=== PATIENT | male | born 1995 | race African-American/Black ===

== ENCOUNTER 2018-10-01 13:26 | Emergency (ER) | payer OTHER, SELFPAY ==
[~2018-10-01 13:26] MED LIST: ISOVUE-370 76%-LOCM 1 ML ONE
[2018-10-01] MEDS ORDERED: Morphine 4 MG/ML VIAL ONE ×2 (13:35→14:41)
--- NOTE | 2018-10-01 13:46 | RAD ---
EXAM: Single view of the chest HISTORY: Chest pain and shortness of breath COMPARISON: None FINDINGS: Single view of the chest shows a normal sized cardiomediastinal silhouette. There is no nette dence of consolidation, mass, or pleural effusion. The bones are unremarkable. IMPRESSION: No evidence of acute cardiopulmonary disease
[2018-10-01 13:54] LABS: #Basophils 0.1 thou/uL (0.0-0.2); #Eosinphils 0.1 thou/uL (0.0-0.7); #Lymphocytes 1.4 thou/uL (1.20-3.40); #Monocytes 0.5 thou/uL (0.11-0.59); #Neutrophils 7.8 thou/uL (1.40-6.50); %Basophils 0.9 % (0.0-1.0); %Eosinophils 0.9 % (0.0-10.0); %Monocytes 4.7 % (0.0-10.0); %Neutrophils 79.6 % (42.0-75.0); Hemoglobin 13.2 g/dL (14.0-18.0); Mean Corpuscular HGB CONC 33.7 g/dL (32.0-36.0); Mean Corpuscular Hemoglobin 32.6 pg (27.0-31.0); Mean Corpuscular Volume 96.7 fL (78.0-98.0); Mean Platelet Volume 8.6 fL (7.4-10.4); Platelet Count 222 thou/uL (130-400); RBC Distribution Width 11.1 % (11.5-14.5); Red Blood Cell (RBC) Count 4.05 mill/uL (4.70-6.10); White Blood Cell (WBC) Count 9.8 thou/uL (4.8-10.8)
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
[2018-10-01 14:13] LABS: ALT (SGPT) 10 U/L (8-55); AST (SGOT) 19 U/L (5-34); Albumin 4.1 g/dL (3.5-5.0); Alkaline Phosphatase 69 U/L (40-150); Anion Gap 10 mmol/L (10-20); BUN (Urea Nitrogen) 13 mg/dL (8.9-20.6); Bilirubin, Total 0.5 mg/dL (0.2-1.2); Calc. Creatinine Clearance 0 mL/min (70-130); Calcium 9.1 mg/dL (7.8-10.44); Carbon Dioxide 23 mmol/L (22-29); Chloride 109 mmol/L (98-107); Estimated GFR-MDRD Greater than 90; Globulin 2.9 g/dL (2.4-3.5); Glucose 119 mg/dL (70-105); Potassium 3.7 mmol/L (3.5-5.1); Sodium 138 mmol/L (136-145)
[2018-10-01] MEDS ORDERED: Adacel (T-DAP) 0.5 ML SYRINGE ONE (14:35)
[2018-10-01] MEDS ORDERED: CEFAZOLIN 1 GM VIAL ONE (14:35)
[2018-10-01] MEDS ORDERED: Ketorolac Tromethamine 30 MG/ML VIAL ONE (16:13)
[2018-10-01] MEDS ORDERED: Bacitracin Zinc 1 Packet ONE (16:18)
== END 2018-10-01 16:25 | disposition home or self-care (01) ==
LOC: ERS 13:26
DX: S21.102A Unspecified open wound of left front wall of thorax without penetration into thoracic cavity, initial encounter (principal); W20.8XXA Other cause of strike by thrown, projected or falling object, initial encounter
CPT/HCPCS: 36415; 71045; 71260; 80053; 85025; 90471; 90715; 93005; 96361; 96365; 96374; 96376; G0390; J0690; J1885; J2270; Q9966

== ENCOUNTER 2018-10-02 16:55 | Inpatient (IN) | payer OTHER, SELFPAY ==
--- NOTE | 2018-10-02 18:04 | CT ---
CT CHEST without CONTRAST CLINICAL INDICATION: Normal check. Patient is post injury one day ago with water pressure done. Difficulty breathing today . COMPARISON: Contrasted CT thorax on 10/01/2018. FINDINGS: Aorta: Normal caliber but not well evaluated without IV contrast on this exam. Lungs: There is a tiny right and small left pleural effusions. Trace pleural effusion was seen on the prior exam which has increased on today's study. No pneumothorax is seen. There is no consolidation identified. Minimal passive atelectasis is seen at each lung base. Mediastinum: Limited evaluation without IV contrast. Thyroid gland: Normal nonenhanced CT appearance. Osseous structures: No fracture is seen. Chest wall: Again noted is the subcutaneous emphysema involving the left anterior chest wall and left pectoralis major muscle. Subcutaneous emphysema is similar to prior exam. There is a greater degree of subcutaneous edema now present anterior to the pectoralis muscle as well as anterior to the sternum suggestion of minimal fluid posterior to the left pectoralis major muscle. Upper abdomen: There is increased density present in the gallbladder lumen likely due to vicarious ex cretion of contrast from prior study. Visualized upper abdomen otherwise demonstrates a grossly normal nonenhanced CT appearance. No other interval change. IMPRESSION: 1. Stable traumatic injury of the left anterior chest wall with subcutaneous emphysema involving the left pectoralis major muscle and subcutaneous soft tissues with associated small soft tissue defect seen anterior to the left pectoralis muscle. There has been mild interval increase in subcutaneous ed irina on the current study. 2. Tiny right and small left pleural effusions which have increased from prior study. No pneumothorax is identified.
[2018-10-02 18:08] LABS: #Lymphocytes 1.3 thou/uL (1.20-3.40); #Neutrophils 11.5 thou/uL (1.40-6.50); %Basophils 0.3 % (0.0-1.0); %Eosinophils 0.1 % (0.0-10.0); %Lymphocytes 9.4 % (21.0-51.0); %Monocytes 7.5 % (0.0-10.0); %Neutrophils 82.7 % (42.0-75.0); Hemoglobin 14.5 g/dL (14.0-18.0); Mean Corpuscular HGB CONC 33.9 g/dL (32.0-36.0); Mean Corpuscular Hemoglobin 32.9 pg (27.0-31.0); Mean Corpuscular Volume 96.9 fL (78.0-98.0); Mean Platelet Volume 9.1 fL (7.4-10.4); Platelet Count 209 thou/uL (130-400); RBC Distribution Width 11.1 % (11.5-14.5); Red Blood Cell (RBC) Count 4.41 mill/uL (4.70-6.10); White Blood Cell (WBC) Count 13.9 thou/uL (4.8-10.8)
[2018-10-02] MEDS ORDERED: Ibuprofen 800 MG TAB ONE (18:11)
[2018-10-02] MEDS ORDERED: Dextrose 5% in Water 1,000 ML IV PRN ×2 (19:37→19:43)
[2018-10-02] MEDS ORDERED: hydrALAZINE 20 MG/ML VIAL SLOW IVP PRN (19:37)
[2018-10-02] MEDS ORDERED: Dextrose 50% Abboject 50 ML SYRINGE SLOW IVP PRN ×2 (19:37→19:43)
[2018-10-02] MEDS ORDERED: Ondansetron PF 4 MG/2 ML Vial IVP PRN (19:37)
[2018-10-02] MEDS ORDERED: Promethazine HCl 25 MG/ML VIAL IM PRN ×2 (19:37→23:17)
[2018-10-02] MEDS ORDERED: Morphine 4 MG/ML VIAL SLOW IVP PRN (19:37)
[2018-10-02] MEDS ORDERED: HYDROcodone/Acetaminophen 5/325 mg Tablet PO PRN (19:41)
[2018-10-02] MEDS ORDERED: Cyclobenzaprine 10 MG TAB PO PRN (19:41)
[2018-10-02 19:58] LABS: Phosphorus 2.4 mg/dL (2.3-4.7)
[2018-10-02 20:00] LABS: Anion Gap 13 mmol/L (10-20); BUN (Urea Nitrogen) 10 mg/dL (8.9-20.6); Calc. Creatinine Clearance 0 mL/min (70-130); Calcium 9.4 mg/dL (7.8-10.44); Carbon Dioxide 23 mmol/L (22-29); Chloride 103 mmol/L (98-107); Estimated GFR-MDRD Greater than 90; Glucose 99 mg/dL (70-105); Magnesium 1.4 mg/dL (1.6-2.6); Potassium 3.2 mmol/L (3.5-5.1); Sodium 136 mmol/L (136-145)
[2018-10-02 20:03] LABS: Lactic Acid 0.9 mmol/L (0.5-2.2)
[2018-10-02 20:16] LABS: Hemoglobin 13.2 g/dL (14.0-18.0); Mean Corpuscular HGB CONC 33.3 g/dL (32.0-36.0); Mean Corpuscular Volume 96.2 fL (78.0-98.0); Mean Platelet Volume 8.7 fL (7.4-10.4); Platelet Count 221 thou/uL (130-400); RBC Distribution Width 10.9 % (11.5-14.5); Red Blood Cell (RBC) Count 4.11 mill/uL (4.70-6.10); White Blood Cell (WBC) Count 13.3 thou/uL (4.8-10.8)
[2018-10-02 20:27] LABS: Band 3 % (5-11); Lymphocytes 9 % (21-51); MDiff Complete? YES; Monocytes 4 % (0-10); Neutrophil 83 % (42-75); Platelet Morphology Comment Appears Adequate; RBC Morphology Normal; Reactive Lymphocytes 1 % (0-10)
[2018-10-02] MEDS ORDERED: Albuterol Sulfate 1.25 MG/3 ML NEB NEB PRN (20:59)
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
[2018-10-02] MEDS ORDERED: Bupivacaine HCl 0.5%/Epinephrine 1:200,000/PF 30 ml Vial ONE (21:51)
[2018-10-02] MEDS ORDERED: Midazolam HCl 2 mg/2 ml Vial ONE (21:52)
[2018-10-02] MEDS ORDERED: Fentanyl 250 MCG/5 ML VIAL ONE (21:52)
[2018-10-02] MEDS ORDERED: Famotidine/PF 20 mg/2ml Vial ONE (21:53)
[2018-10-02] MEDS ORDERED: Scopolamine 1.5 mg/72 hour Patch ONE (21:53)
[2018-10-02] MEDS ORDERED: Promethazine HCl 25 MG/ML VIAL SLOW IVP PRN (23:17)
[2018-10-02] MEDS ORDERED: Ondansetron HCl/PF 4 MG/2 ML Vial IVP PRN (23:17)
[2018-10-03] MEDS ORDERED: Magnesium 2 GM/50 ML 4 GM in Premix Bag 1 BAG IVPB SCH (00:11)
[2018-10-03] MEDS: Famotidine 20 MG TAB PO SCH ×3 (00:17→20:46)
[2018-10-03] MEDS: Silver Sulfadiazine 1% Cream 50 GM TUBE TP SCH ×3 (00:17→21:41)
[2018-10-03] MEDS: Sodium Chloride 0.9% 1,000 ML IV SCH ×2 (00:17→00:47)
[2018-10-03] MEDS: HYDROcodone/Acetaminophen 5/325 mg Tablet PO SCH ×8 (00:17→20:47)
[2018-10-03] MEDS: Ibuprofen 800 MG TAB PO SCH ×4 (00:18→20:45)
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
[2018-10-03] MEDS: Piperacillin/Tazobactam 3.375 GM in Sodium Chloride 0.9% 100 ML IVPB SCH ×4 (00:46→18:18)
[2018-10-03] MEDS: Acetaminophen 500 MG TAB PO SCH ×5 (00:50→23:10)
[2018-10-03] MEDS ORDERED: Magnesium Sulfate 4 GM in Sodium Chloride 0.9% 250 ML 250 ML IVPB SCH (01:00)
[2018-10-03] MEDS ORDERED: Potassium Phosphate 30 MMOL in Sodium Chloride 0.9% 500 ML IVPB SCH (01:00)
[2018-10-03 02:03] VITALS: BMI 26.6
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
[2018-10-03 05:01] LABS: Anion Gap 11 mmol/L (10-20); BUN (Urea Nitrogen) 9 mg/dL (8.9-20.6); Calc. Creatinine Clearance 136 mL/min (70-130); Calcium 9.2 mg/dL (7.8-10.44); Carbon Dioxide 26 mmol/L (22-29); Chloride 103 mmol/L (98-107); Estimated GFR-MDRD Greater than 90; Glucose 133 mg/dL (70-105); Phosphorus 2.4 mg/dL (2.3-4.7); Potassium 3.8 mmol/L (3.5-5.1); Sodium 136 mmol/L (136-145)
[2018-10-03 05:08] LABS: Band 4 % (5-11); Hemoglobin 13.4 g/dL (14.0-18.0); Lymphocytes 2 % (21-51); MDiff Complete? YES; Mean Corpuscular HGB CONC 34.2 g/dL (32.0-36.0); Mean Corpuscular Hemoglobin 33.1 pg (27.0-31.0); Mean Corpuscular Volume 96.8 fL (78.0-98.0); Monocytes 8 % (0-10); Neutrophil 86 % (42-75); Platelet Count 212 thou/uL (130-400); Platelet Morphology Comment Appears Adequate; RBC Morphology Normal; Red Blood Cell (RBC) Count 4.05 mill/uL (4.70-6.10); White Blood Cell (WBC) Count 14.8 thou/uL (4.8-10.8)
[2018-10-03] MEDS: Vancomycin HCl 1 GM in Premix Bag 1 BAG IVPB SCH ×3 (05:56→20:46)
--- NOTE | 2018-10-03 08:12 | RAD ---
SINGLE VIEW OF THE CHEST: Comparison: 10-01-18 History: Right chest wall trauma. FINDINGS: Single view of the chest shows a normal sized cardiomediastinal silhouette. There is no evidence of c onsolidation, mass, or pleural effusion. The bones are unremarkable. IMPRESSION: No evidence of acute cardiopulmonary disease. POS: [facility]
[2018-10-03] MEDS: Polyethylene Glycol 3350 17 GM Packet PO SCH (08:56)
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
[2018-10-03 20:32] LABS: Vancomycin, Trough 11.3 ug/mL
[2018-10-03] MEDS ORDERED: Enoxaparin Sodium 40 MG/0.4 ML SYRINGE SC SCH (21:00)
[2018-10-04] MEDS: Piperacillin/Tazobactam 3.375 GM in Sodium Chloride 0.9% 100 ML IVPB SCH ×3 (00:18→13:00)
[2018-10-04] MEDS: HYDROcodone/Acetaminophen 5/325 mg Tablet PO SCH ×4 (00:22→14:21)
[2018-10-04] MEDS: Vancomycin HCl 1 GM in Premix Bag 1 BAG IVPB SCH ×2 (05:14→13:42)
[2018-10-04] MEDS: Acetaminophen 500 MG TAB PO SCH ×2 (05:17→13:41)
[2018-10-04] MEDS: Ibuprofen 800 MG TAB PO SCH ×2 (05:17→14:23)
[2018-10-04 05:48] LABS: Anion Gap 8 mmol/L (10-20); BUN (Urea Nitrogen) 9 mg/dL (8.9-20.6); Calc. Creatinine Clearance 140 mL/min (70-130); Carbon Dioxide 29 mmol/L (22-29); Chloride 106 mmol/L (98-107); Estimated GFR-MDRD Greater than 90; Glucose 105 mg/dL (70-105); Magnesium 1.8 mg/dL (1.6-2.6); Phosphorus 3.5 mg/dL (2.3-4.7); Potassium 3.6 mmol/L (3.5-5.1); Sodium 139 mmol/L (136-145)
[2018-10-04] MEDS ORDERED: Potassium Chloride 20 MEQ TAB PO SCH (07:30)
[2018-10-04 08:07] LABS: Hemoglobin 12.3 g/dL (14.0-18.0); Mean Corpuscular HGB CONC 33.6 g/dL (32.0-36.0); Mean Corpuscular Hemoglobin 32.9 pg (27.0-31.0); Platelet Count 216 thou/uL (130-400); Red Blood Cell (RBC) Count 3.75 mill/uL (4.70-6.10); White Blood Cell (WBC) Count 11.8 thou/uL (4.8-10.8)
[2018-10-04 08:34] LABS: Band 2 % (5-11); Lymphocytes 15 % (21-51); MDiff Complete? YES; Monocytes 7 % (0-10); Neutrophil 76 % (42-75); Platelet Morphology Comment Appears Adequate; Polychromasia SLIGHT = 2-3 cells (100X) (0-2/hpf)
[2018-10-04] MEDS: Silver Sulfadiazine 1% Cream 50 GM TUBE TP SCH (09:10)
[2018-10-04] MEDS: Famotidine 20 MG TAB PO SCH (09:27)
[2018-10-04] MEDS: Polyethylene Glycol 3350 17 GM Packet PO SCH (09:30)
[2018-10-04 11:26] VITALS: BP 138/72; TEMP 97.8
[2018-10-04] MEDS ORDERED: Triple Antibiotic Oint 1 GM Packet TOP SCH ×2 (12:45→21:00)
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
== END 2018-10-04 15:08 | disposition home or self-care (01) | DRG 580 ==
LOC: ERS 16:55 → SDC/OP 22:22 → SURG B 23:59
PROVIDERS: ADMIT Specialist; ATTEND Specialist
PROC: 0KD Muscles, Extraction (ICD-10-PCS; principal; 2018-10-02)
DX: S21.112A Laceration without foreign body of left front wall of thorax without penetration into thoracic cavity, initial encounter (principal); J90 Pleural effusion, not elsewhere classified; J45.909 Unspecified asthma, uncomplicated; T21.01XA Burn of unspecified degree of chest wall, initial encounter; X12.XXXA Contact with other hot fluids, initial encounter; E87.6 Hypokalemia; E83.42 Hypomagnesemia; E83.39 Other disorders of phosphorus metabolism; Y99.0 Civilian activity done for income or pay
CPT/HCPCS: 36415; 71045; 71250; 80048; 80202; 83605; 83735; 84100; 85007; 85025; 85027; 96365; J0131; J0670; J1650; J2250; J2543; J3010; J3370; J3475; J3490; J7050; S0028